=== PATIENT | female | born 2000 | race Caucasian/White ===

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

== ENCOUNTER 2022-12-03 10:25 | Emergency (ER) | payer OTHER ==
[2022-12-03] MEDS ORDERED: KETOROLAC 15 MG/ML 1 ML VIAL IM STA (11:25)
[2022-12-03] MEDS ORDERED: LIDOCAINE 5% PATCH TOPICAL SCH (11:30)
--- NOTE | 2022-12-03 12:30 | ED ---
General Adult HPI - General Source: patient, RN notes reviewed Mode of arrival: ambulatory Limitations: no limitations <Fiordaliza Patel - Last Filed: 12/03/22 18:49> <Mariel Garcia - Last Filed: 12/04/22 08:18> - General Chief complaint: Back Pain/Injury Stated complaint: Back pain Time Seen by Provider: 12/03/22 10:59 - History of Present Illness Initial comments: 22-year-old female with no significant past medical history who presents to the emergency department with a chief complaint of acute low back pain. Patient reports that she woke up this morning with left lower back pain. She denies any known recent trauma or injury. She denies any fever, chills, numbness tingling, saddle paresthesia, loss of bowel or bladder function. She has been taking Tylenol for his symptoms with mild relief. (Fiordaliza Patel) - Related Data Home Medications Medication Instructions Recorded Confirmed Ibuprofen [Motrin] 800 mg PO Q8H PRN 11/11/20 11/11/20 Norethind-Eth Estra 1-0.02mg 1 tab PO DAILY 11/11/20 11/11/20 Previous Rx's Medication Instructions Recorded Sulfamethox-Tmp 800-160Mg [Bactrim 1 tab PO Q12HR #28 tab 11/10/20 DS 800-160 mg] Ondansetron Odt [Zofran Odt] 4 mg PO Q8HR PRN #14 tab 11/11/20 Allergies Allergy/AdvReac Type Severity Reaction Status Date / Time adhesive Allergy Rash/Hives Verified 12/03/22 10:55 Penicillins Allergy Rash/Hives Verified 12/03/22 10:55 Review of Systems ROS Other: All systems not noted in ROS Statement are negative. <Fiordaliza Patel - Last Filed: 12/03/22 18:49> ROS Other: All systems not noted in ROS Statement are negative. <Mariel Garcia - Last Filed: 12/04/22 08:18> ROS Statement: Those systems with pertinent positive or pertinent negative responses have been documented in the HPI. Past Medical History Additional Past Medical History / Comment(s): uti, IBS History of Any Multi-Drug Resistant Organisms: ESBL Date of last positivie culture/infection: 12/02/20 MDRO Source:: ESBL URINE Past Surgical History: Adenoidectomy, Tonsillectomy Additional Past Surgical History / Comment(s): knee Past Psychological History: No Psychological Hx Reported Smoking Status: Vaper Past Alcohol Use History: Occasional Past Drug Use History: Marijuana <AmandaFiordaliza - Last Filed: 12/03/22 18:49> General Exam Limitations: no limitations General appearance: alert, in no apparent distress Head exam: Present: atraumatic, normocephalic, normal inspection Eye exam: Present: normal appearance, PERRL, EOMI. Absent: scleral icterus, conjunctival injection, periorbital swelling ENT exam: Present: normal exam, mucous membranes moist Neck exam: Present: normal inspection. Absent: tenderness, meningismus, lymphadenopathy Respiratory exam: Present: normal lung sounds bilaterally. Absent: respiratory distress, wheezes, rales, rhonchi, stridor Cardiovascular Exam: Present: regular rate, normal rhythm, normal heart sounds. Absent: systolic murmur, diastolic murmur, rubs, gallop, clicks GI/Abdominal exam: Present: soft, normal bowel sounds. Absent: distended, tenderness, guarding, rebound, rigid Extremities exam: Present: normal inspection, full ROM, normal capillary refill. Absent: tenderness, pedal edema, joint swelling, calf tenderness Back exam: Present: normal inspection Neurological exam: Present: alert, oriented X3, CN II-XII intact Psychiatric exam: Present: normal affect, normal mood Skin exam: Present: warm, dry, intact, normal color. Absent: rash <Fiordaliza Patel - Last Filed: 12/03/22 18:49> Course Vital Signs 12/03/22 12/03/22 10:53 12:37 Temperature 98.2 F 98.1 F Pulse Rate 75 77 Respiratory 20 16 Rate Blood Pressure 136/76 130/81 O2 Sat by Pulse 99 99 Oximetry Medical Decision Making <Fiordaliza Patel - Last Filed: 12/03/22 18:49> <Mariel Garcia - Last Filed: 12/04/22 08:18> - Medical Decision Making Was pt. sent in by a medical professional or institution (, PA, WEB CONSULTANT, urgent care, hospital, or custodial...) When possible be specific @ -[No] Did you speak to anyone other than the patient for history (EMS, parent, family, police, friend...)? What history was obtained from this source @ -[No] Did you review nursing and triage notes (agree or disagree)? Why? @ -[I reviewed and agree with nursing and triage notes] Were old charts reviewed (outside hosp., previous admission, EMS record, old EKG, old radiological studies, urgent care reports/EKG's, custodial records)? Report findings @ -[No old charts were reviewed] Differential Diagnosis (chest pain, altered mental status, abdominal pain women, abdominal pain men, vaginal bleeding, weakness, fever, dyspnea, syncope, headache, dizziness, GI bleed, back pain, seizure, CVA, palpatations, mental health, musculoskeletal)? @ -[not applicable] EKG interpreted by me (3pts min.). @ -[As above] X-rays interpreted by me (1pt min.). @ -[None done] CT interpreted by me (1pt min.). @ -[None done] U/S interpreted by me (1pt. min.). @ -[None done] What testing was considered but not performed or refused? (CT, X-rays, U/S, labs)? Why? @ -[None] What meds were considered but not given or refused? Why? @ -[None] Did you discuss the management of the patient with other professionals (professionals i.e. , PA, WEB CONSULTANT, lab, RT, psych nurse, clinical social work therapist, knot picker cloth, teacher, nuclear security officer, case technician)? Give summary @ -[No] Was smoking cessation discussed for >3mins.? @ -[No] Was critical care preformed (if so, how long)? @ -[No] Were there social determinants of health that impacted care today? How? (Homelessness, low income, unemployed, alcoholism, drug addiction, transportation, low edu. Level, literacy, decrease access to med. care, senior care, rehab)? @ -[No] Was there de-escalation of care discussed even if they declined (Discuss DNR or withdrawal of care, Hospice)? DNR status @ -[No] What co-morbidities impacted this encounter? (DM, HTN, Smoking, COPD, CAD, Cancer, CVA, ARF, Chemo, Hep., AIDS, mental health diagnosis, sleep apnea, morbid obesity)? @ -[None] Was patient admitted / discharged? Hospital course, mention meds given and route, prescriptions, significant lab abnormalities, going to OR and other pertinent info. @ -Discharged. This is a 22-year-old female who presents to the emergency department with low back pain. Patient had a thorough history and physical exam performed while in the ED. Heart rate regular rate and rhythm, lungs clear to auscultation bilaterally abdomen is soft and nontender. There is a rash across the lower abdomen is nontender. with mild symptomatic relief. He was given a Toradol and Lidoderm patch. I discussed the results in detail with the patient verbalized understanding, questions and concerns were addressed. The patient was discharged in stable condition. Case discussed with ROBBY Mcclure who agrees with plan of care Undiagnosed new problem with uncertain prognosis? @ -[No] Drug Therapy requiring intensive monitoring for toxicity (Heparin, Nitro, Insulin, Cardizem)? @ -[No] Were any procedures done? @ -[No] Diagnosis/symptom? @ -acute low back pain Acute, or Chronic, or Acute on Chronic? @ -acute Uncomplicated (without systemic symptoms) or Complicated (systemic symptoms)? @ -uncomplicated Side effects of treatment? @ -[No] Exacerbation, Progression, or Severe Exacerbation? @ -[No] Poses a threat to life or bodily function? How? (Chest pain, [place], [place], pneumonia, PE, COPD, DKA, ARF, appy, cholecystitis, CVA, Diverticulitis, Homicidal, Suicidal, threat to staff... and all critical care pts) @ -low likelihood (Fiordaliza Patel) I was overseeing doctor, not Dr. Drummond (Mariel Garcia) Disposition Is patient prescribed a controlled substance at d/c from ED?: No Time of Disposition: 12:30 <Fiordaliza Patel - Last Filed: 12/03/22 18:49> <Mariel Garcia - Last Filed: 12/04/22 08:18> Clinical Impression: Mechanical back pain Disposition: HOME SELF-CARE Condition: Stable Instructions (If sedation given, give patient instructions): Acute Low Back Pain (ED) Additional Instructions: Please return to the nearest emergency department if symptoms worsen or persist Please follow a ice or heat to the area for pain You can take Tylenol and Motrin as needed. Referrals: None,Stated [Primary Care Provider] - 1-2 days
[2022-12-03 12:39] VITALS: BP 130/81; PULSE 77; RESP 16; TEMP 98.1
== END 2022-12-03 12:38 | disposition home or self-care (01) ==
LOC: EC 10:25
DX: M54.50 Low back pain, unspecified (principal); F17.290 Nicotine dependence, other tobacco product, uncomplicated; F12.90 Cannabis use, unspecified, uncomplicated; Z91.09 Other allergy status, other than to drugs and biological substances; Z88.0 Allergy status to penicillin
CPT/HCPCS: 99283; 96372; J1885

== ENCOUNTER 2023-01-07 21:48 | Emergency (ER) | payer OTHER ==
[2023-01-07 22:15] VITALS: RESP 18; TEMP 98.5
[2023-01-07] MEDS ORDERED: ONDANSETRON 4 MG/2 ML VIAL IVP STA (22:30)
[2023-01-07] MEDS ORDERED: SODIUM CHLORIDE 0.9% 1,000 ML IV STA (22:30)
--- NOTE | 2023-01-07 22:43 | ED ---
General Adult HPI - General Chief complaint: Nausea/Vomiting/Diarrhea Stated complaint: Dehydration Time Seen by Provider: 01/07/23 22:16 Source: patient, RN notes reviewed Mode of arrival: ambulatory Limitations: no limitations - History of Present Illness Initial comments: 23-year-old female presents to the emergency department with chief complaint of vomiting and diarrhea. Patient states that started this morning. She has been having diarrhea which she states is now almost clear liquid. She also states that she has vomited 3 times. She reports nausea at this time. She also states that she has mild epigastric and left upper quadrant pain. Denies prior abdominal surgery. Denies fever, cough, sore throat. Denies urinary frequency, dysuria. Past medical history includes IBS. - Related Data Home Medications Medication Instructions Recorded Confirmed Ibuprofen [Motrin] 800 mg PO Q8H PRN 11/11/20 11/11/20 Norethind-Eth Estra 1-0.02mg 1 tab PO DAILY 11/11/20 11/11/20 Previous Rx's Medication Instructions Recorded Sulfamethox-Tmp 800-160Mg [Bactrim 1 tab PO Q12HR #28 tab 11/10/20 DS 800-160 mg] Ondansetron Odt [Zofran Odt] 4 mg PO Q8HR PRN #14 tab 11/11/20 Allergies Allergy/AdvReac Type Severity Reaction Status Date / Time adhesive Allergy Rash/Hives Verified 12/03/22 10:55 Penicillins Allergy Rash/Hives Verified 12/03/22 10:55 Review of Systems ROS Statement: Those systems with pertinent positive or pertinent negative responses have been documented in the HPI. ROS Other: All systems not noted in ROS Statement are negative. Past Medical History Additional Past Medical History / Comment(s): uti, IBS History of Any Multi-Drug Resistant Organisms: ESBL Date of last positivie culture/infection: 12/02/20 MDRO Source:: ESBL URINE Past Surgical History: Adenoidectomy, Tonsillectomy Additional Past Surgical History / Comment(s): knee Past Psychological History: No Psychological Hx Reported Smoking Status: Vaper Past Alcohol Use History: Occasional Past Drug Use History: Marijuana General Exam Limitations: no limitations General appearance: alert, in no apparent distress Head exam: Present: atraumatic, normocephalic, normal inspection Eye exam: Present: normal appearance ENT exam: Present: normal oropharynx, mucous membranes dry Neck exam: Present: normal inspection. Absent: tenderness, meningismus, lymphadenopathy Respiratory exam: Present: normal lung sounds bilaterally. Absent: respiratory distress, wheezes, rales, rhonchi, stridor Cardiovascular Exam: Present: regular rate, normal rhythm, normal heart sounds. Absent: systolic murmur, diastolic murmur, rubs, gallop, clicks GI/Abdominal exam: Present: soft, tenderness (TTP LUQ and epigastric ), hyperactive bowel sounds. Absent: distended, guarding, rebound, rigid Neurological exam: Present: alert, oriented X3 Psychiatric exam: Present: normal affect, normal mood Skin exam: Present: warm, dry, intact, normal color. Absent: rash Course Vital Signs 01/07/23 22:12 Temperature 98.5 F Pulse Rate 98 Respiratory 18 Rate Blood Pressure 136/74 O2 Sat by Pulse 98 Oximetry Medical Decision Making - Medical Decision Making Was pt. sent in by a medical professional or institution (, PA, W[employer] BLADE REPAIR TECHNICIAN, urgent care, hospital, or snf...) When possible be specific @ -No Did you speak to anyone other than the patient for history (EMS, parent, family, police, friend...)? What history was obtained from this source @ -No Did you review nursing and triage notes (agree or disagree)? Why? @ -I reviewed and agree with nursing and triage notes Were old charts reviewed (outside hosp., previous admission, EMS record, old EKG, old radiological studies, urgent care reports/EKG's, snf records)? Report findings @ -No old charts were reviewed Differential Diagnosis (chest pain, altered mental status, abdominal pain women, abdominal pain men, vaginal bleeding, weakness, fever, dyspnea, syncope, headach e, dizziness, GI bleed, back pain, seizure, CVA, palpatations, mental health, musculoskeletal)? @ -Differential Abdominal Pain Women: Appendicitis, Cholecystitis, diverticulosis, ischemic bowel, pancreatitis, hepatitis, UTI, gastroenteritis, AAA, incarcerated hernia, bowel obstruction, constipation, inflammatory bowel, hepatitis, peptic ulcer disease, splenic infarction, perforated viscus, vulvitis, ovarian torsion, PID, kidney stone, placenta abruption, this is not meant to be an all-inclusive list EKG interpreted by me (3pts min.). @ -None X-rays interpreted by me (1pt min.). @ -None done CT interpreted by me (1pt min.). @ -None done U/S interpreted by me (1pt. min.). @ -None done What testing was considered but not performed or refused? (CT, X-rays, U/S, labs)? Why? @ -None What meds were considered but not given or refused? Why? @ -None Did you discuss the management of the patient with other professionals (ant gonsales i.e. , PA, W[employer]UR[employer] BLADE REPAIR TECHNICIAN, lab, RT, psych nurse, social professionals, senior technical architect, teacher, agricultural technical officer, correctional casework specialist)? Give summary @ -No Was smoking cessation discussed for >3mins.? @ -No Was critical care preformed (if so, how long)? @ -No Were there social determinants of health that impacted care today? How? (Homelessness, low income, unemployed, alcoholism, drug addiction, transportation, low edu. Level, literacy, decrease access to med. care, skilled nursing, rehab)? @ -No Was there de-escalation of care discussed even if they declined (Discuss DNR or withdrawal of care, Hospice)? DNR status @ -No What co-morbidities impacted this encounter? (DM, HTN, Smoking, COPD, CAD, Cancer, CVA, ARF, Chemo, Hep., AIDS, mental health diagnosis, sleep apnea, morbid obesity)? @ -None Was patient admitted / discharged? Hospital course, mention meds given and route, prescriptions, significant lab abnormalities, going to OR and other pertinent info. @ -Patient presented to the emergency department with chief complaint of diarrhea and vomiting. VSS. Ordered 1L NS and zofran. CBC shows WBC 10.0, hgb 12.4, hct 38.1; CMP shows Na 138, potassium 4.3, Cl 103, Cr 0.70, lipase 82. Patient was unable to provide a urine sample. Discussed lab results with patient and return precautions. Case discussed with my attending, Dr. Gabriel. Patient discharged in stable condition. Undiagnosed new problem with uncertain prognosis? @ -No Drug Therapy requiring intensive monitoring for toxicity (Heparin, Nitro, Insulin, Cardizem)? @ -No Were any procedures done? @ -No Diagnosis/symptom? @ -gastroenteritis Acute, or Chronic, or Acute on Chronic? @ -acute Uncomplicated (without systemic symptoms) or Complicated (systemic symptoms)? @ -uncomplicated Side effects of treatment? @ -No Exacerbation, Progression, or Severe Exacerbation? @ -No Poses a threat to life or bodily function? How? (Chest pain, USA, [place], pneumonia, PE, COPD, DKA, ARF, appy, cholecystitis, CVA, Diverticulitis, Homicidal, Suicidal, threat to staff... and all critical care pts) @ -No - Lab Data Result diagrams: 01/07/23 22:47 01/07/23 22:47 Lab Results 01/07/23 01/07/23 Range/Units 22:47 22:47 WBC 10.0 (3.8-10.6) k/uL RBC 4.92 (3.80-5.40) m/uL Hgb 12.4 (11.4-16.0) gm/dL Hct 38.1 (34.0-46.0) % MCV 77.3 L (80.0-100.0) fL MCH 25.2 (25.0-35.0) pg MCHC 32.5 (31.0-37.0) g/dL RDW 15.6 H (11.5-15.5) % Plt Count 329 (150-450) k/uL MPV 7.1 Neutrophils % 81 % Lymphocytes % 11 % Monocytes % 5 % Eosinophils % 1 % Basophils % 0 % Neutrophils # 8.1 H (1.3-7.7) k/uL Lymphocytes # 1.1 (1.0-4.8) k/uL Monocytes # 0.5 (0-1.0) k/uL Eosinophils # 0.1 (0-0.7) k/uL Basophils # 0.0 (0-0.2) k/uL Microcytosis Slight Sodium 138 (137-145) mmol/L Potassium 4.3 (3.5-5.1) mmol/L Chloride 103 (98-107) mmol/L Carbon Dioxide 22 (22-30) mmol/L Anion Gap 13 mmol/L BUN 12 (7-17) mg/dL Creatinine 0.70 (0.52-1.04) mg/dL Est GFR (CKD-EPI)AfAm >90 (>60 ml/min/1.73 sqM) Est GFR (CKD-EPI)NonAf >90 (>60 ml/min/1.73 sqM) Glucose 92 (74-99) mg/dL Calcium 9.0 (8.4-10.2) mg/dL Total Bilirubin 0.6 (0.2-1.3) mg/dL AST 22 (14-36) U/L ALT 19 (4-34) U/L Alkaline Phosphatase 59 (38-126) U/L Total Protein 8.0 (6.3-8.2) g/dL Albumin 4.6 (3.5-5.0) g/dL Lipase 82 (23-300) U/L Disposition Clinical Impression: Gastroenteritis Disposition: HOME SELF-CARE Condition: Stable Instructions (If sedation given, give patient instructions): Acute Nausea and Vomiting (ED) Additional Instructions: Please return to the Emergency Department if symptoms worsen or any other concerns. Is patient prescribed a controlled substance at d/c from ED?: No Referrals: None,Stated [Primary Care Provider] - 1-2 days Time of Disposition: 23:40
[2023-01-07 23:02] LABS: Basophils % (A) 0 %; Eosinophils # (A) 0.1 k/uL (0-0.7); Eosinophils % (A) 1 %; HCT 38.1 % (34.0-46.0); HGB 12.4 gm/dL (11.4-16.0); Lymphocytes # (A) 1.1 k/uL (1.0-4.8); Lymphocytes % (A) 11 %; MCH 25.2 pg (25.0-35.0); MCHC 32.5 g/dL (31.0-37.0); MCV 77.3 fL (80.0-100.0); Mean Platelet Volume 7.1; Microcytosis Slight; Monocytes # (A) 0.5 k/uL (0-1.0); Monocytes % (A) 5 %; Neutrophils # (A) 8.1 k/uL (1.3-7.7); Neutrophils % (A) 81 %; Platelet Count 329 k/uL (150-450); RBC 4.92 m/uL (3.80-5.40); RDW 15.6 % (11.5-15.5)
[2023-01-07 23:10] LABS: ALT 19 U/L (4-34); AST 22 U/L (14-36); African American GFR (CKD) >90 (>60 ml/min/1.73 sqM); Albumin 4.6 g/dL (3.5-5.0); Alkaline Phosphatase 59 U/L (38-126); Anion Gap 13 mmol/L; Blood Urea Nitrogen 12 mg/dL (7-17); Carbon Dioxide 22 mmol/L (22-30); Chloride 103 mmol/L (98-107); Glucose 92 mg/dL (74-99); Lipase 82 U/L (23-300); Non-African American GFR(CKD) >90 (>60 ml/min/1.73 sqM); Potassium 4.3 mmol/L (3.5-5.1); Sodium 138 mmol/L (137-145); Total Bilirubin 0.6 mg/dL (0.2-1.3)
[2023-01-07 23:46] VITALS: BP 128/76; PULSE 82
== END 2023-01-07 23:48 | disposition home or self-care (01) ==
LOC: EC 21:48
DX: K52.9 Noninfective gastroenteritis and colitis, unspecified (principal); F17.290 Nicotine dependence, other tobacco product, uncomplicated; F12.90 Cannabis use, unspecified, uncomplicated; Z91.09 Other allergy status, other than to drugs and biological substances; Z88.0 Allergy status to penicillin
CPT/HCPCS: 80053; 83690; 85025; 99284; 96374; 96361; J2405; 36415

== ENCOUNTER 2023-02-13 22:06 | Emergency (ER) | payer OTHER ==
[2023-02-13 22:13] VITALS: RESP 16; TEMP 98.4
[2023-02-13] MEDS ORDERED: DEXAMETHASONE SOD PHOSPHATE 10 MG/ML 1 ML VIAL IVP STA (22:16)
[2023-02-13] MEDS ORDERED: KETOROLAC 15 MG/ML 1 ML VIAL IVP STA (22:16)
[2023-02-13] MEDS ORDERED: METOCLOPRAMIDE 5 MG/ML 2 ML VIAL IVP STA (22:16)
[2023-02-13] MEDS ORDERED: SODIUM CHLORIDE 0.9% 1,000 ML IV STA (22:16)
[2023-02-13] MEDS ORDERED: diphenhydrAMINE 50 MG/ML 1 ML VIAL IVP STA (22:16)
--- NOTE | 2023-02-13 23:28 | ED ---
Headache HPI - General Chief Complaint: Headache Stated Complaint: migraine Time Seen by Provider: 02/13/23 22:16 Mode of arrival: ambulatory Limitations: no limitations - History of Present Illness Initial Comments: Patient is a 23-year-old female presents to the emergency department for migraine x 1 day. Patient has history of migraine states this feels similar. She denies recent head trauma and falls. She started sumutriptan last week by her primary care provider who manages her migraines. She took her last night without relief. She denies numbness and tingling. Reports nausea without vomiting. Denies fever and chills. Denies focal deficit and weakness. - Related Data Home Medications Medication Instructions Recorded Confirmed Ibuprofen [Motrin] 800 mg PO Q8H PRN 11/11/20 11/11/20 Norethind-Eth Estra 1-0.02mg 1 tab PO DAILY 11/11/20 11/11/20 Previous Rx's Medication Instructions Recorded Sulfamethox-Tmp 800-160Mg [Bactrim 1 tab PO Q12HR #28 tab 11/10/20 DS 800-160 mg] Ondansetron Odt [Zofran Odt] 4 mg PO Q8HR PRN #14 tab 11/11/20 Allergies Allergy/AdvReac Type Severity Reaction Status Date / Time adhesive Allergy Rash/Hives Verified 02/13/23 22:10 albuterol Allergy Anaphylaxis Verified 02/13/23 22:10 Penicillins Allergy Rash/Hives Verified 02/13/23 22:10 Review of Systems ROS Statement: Those systems with pertinent positive or pertinent negative responses have been documented in the HPI. ROS Other: All systems not noted in ROS Statement are negative. Past Medical History Additional Past Medical History / Comment(s): uti, IBS, migraines, colitis History of Any Multi-Drug Resistant Organisms: ESBL Date of last positivie culture/infection: 12/02/20 MDRO Source:: ESBL URINE Past Surgical History: Adenoidectomy, Tonsillectomy Additional Past Surgical History / Comment(s): knee Past Psychological History: No Psychological Hx Reported Smoking Status: Vaper Past Alcohol Use History: Occasional Past Drug Use History: Marijuana General Exam Limitations: no limitations General appearance: alert, in no apparent distress Head exam: Present: atraumatic, normocephalic, normal inspection Eye exam: Present: normal appearance, PERRL, EOMI. Absent: scleral icterus, conjunctival injection, periorbital swelling Respiratory exam: Present: normal lung sounds bilaterally. Absent: respiratory distress, wheezes, rales, rhonchi, stridor Cardiovascular Exam: Present: regular rate, normal rhythm, normal heart sounds. Absent: systolic murmur, diastolic murmur, rubs, gallop, clicks Neurological exam: Present: alert, oriented X3, CN II-XII intact Expanded Sensory exam: Upper Extremity Light Touch: Normal, Lower Extremity Light Touch: Normal Motor strength exam: RUE: 5, LUE: 5, RLE: 5, LLE: 5 Psychiatric exam: Present: normal affect, normal mood Skin exam: Present: warm, dry, intact, normal color. Absent: rash Course Vital Signs 02/13/23 02/13/23 22:10 23:34 Temperature 98.4 F Pulse Rate 82 72 Respiratory 16 16 Rate Blood Pressure 133/83 119/68 O2 Sat by Pulse 97 98 Oximetry Medical Decision Making - Medical Decision Making Was pt. sent in by a medical professional or institution (, PA, ELECTROPLATING LABORER, urgent care, hospital, or prison...) When possible be specific @ -No Did you speak to anyone other than the patient for history (EMS, parent, family, police, friend...)? What history was obtained from this source @ -No Did you review nursing and triage notes (agree or disagree)? Why? @ -I reviewed and agree with nursing and triage notes Were old charts reviewed (outside hosp., previous admission, EMS record, old EKG, old radiological studies, urgent care reports/EKG's, prison records)? Report findings @ -No old charts were reviewed Differential Diagnosis (chest pain, altered mental status, abdominal pain women, abdominal pain men, vaginal bleeding, weakness, fever, dyspnea, syncope, headache, dizziness, GI bleed, back pain, seizure, CVA, palpatations, mental health)? @ -Differential Headache: Migraine, tension, cluster, carbon monoxide, central venous thrombosis, pension karma temporal arteritis, acute closure glaucoma, intercranial hemorrhage, mastoiditis, sinusitis, head injury, this is not meant to be an all-inclusive list. EKG interpreted by me (3pts min.). @ -As above X-rays interpreted by me (1pt min.). @ -None done CT interpreted by me (1pt min.). @ -None done U/S interpreted by me (1pt. min.). @ -None done What testing was considered but not performed or refused? (CT, X-rays, U/S, labs)? Why? @ -None What meds were considered but not given or refused? Why? @ -None Did you discuss the management of the patient with other professionals (professionals i.e. , PA, ELECTROPLATING LABORER, lab, RT, psych nurse, social media manager, pencil inspector, teacher, staff combat information center officer, case loader operator)? Give summary @ -No Was smoking cessation discussed for >3mins.? @ -No Was critical care preformed (if so, how long)? @ -No Were there social determinants of health that impacted care today? How? (Homelessness, low income, unemployed, alcoholism, drug addiction, transportation, low edu. Level, literacy, decrease access to med. care, half-way, rehab)? @ -No Was there de-escalation of care discussed even if they declined (Discuss DNR or withdrawal of care, Hospice)? DNR status @ -No What co-morbidities impacted this encounter? (DM, HTN, Smoking, COPD, CAD, Cancer, CVA, ARF, Chemo, Hep., AIDS, mental health diagnosis, sleep apnea, morbid obesity)? @ -None Was patient admitted / discharged? Hospital course, mention meds given and route, prescriptions, significant lab abnormalities, going to OR and other pertinent info. @ -Patient presented with migraine. No neurological deficit on exam. Patient given migraine cocktail with resolution of symptoms. Undiagnosed new problem with uncertain prognosis? @ -No Drug Therapy requiring intensive monitoring for toxicity (Heparin, Nitro, Insulin, Cardizem)? @ -No Were any procedures done? @ -[No] Diagnosis/symptom? @ -Migraine Acute, or Chronic, or Acute on Chronic? @ -Acute Uncomplicated (without systemic symptoms) or Complicated (systemic symptoms)? @ -Uncomplicated Side effects of treatment? @ -[No] Exacerbation, Progression, or Severe Exacerbation? @ -[No] Poses a threat to life or bodily function? How? (Chest pain, USA, [place], pneumonia, PE, COPD, DKA, ARF, appy, cholecystitis, CVA, Diverticulitis, Homicidal, Suicidal, threat to staff... and all critical care pts) @ -[No] Dr. Gabriel is my attending Disposition Clinical Impression: Migraine headache Disposition: HOME SELF-CARE Condition: Good Instructions (If sedation given, give patient instructions): Migraine Headache (ED) Additional Instructions: Please follow-up with your primary care provider in 1-2 days. Return to the emergency department if you experience new, concerning, or worsening symptoms. Is patient prescribed a controlled substance at d/c from ED?: No Referrals: None,Stated [Primary Care Provider] - 1-2 days
[2023-02-13 23:41] VITALS: BP 119/68; PULSE 72
== END 2023-02-13 23:34 | disposition home or self-care (01) ==
LOC: EC 22:06
DX: G43.909 Migraine, unspecified, not intractable, without status migrainosus (principal); F17.290 Nicotine dependence, other tobacco product, uncomplicated; F12.90 Cannabis use, unspecified, uncomplicated; Z91.09 Other allergy status, other than to drugs and biological substances; Z88.0 Allergy status to penicillin; Z88.8 Allergy status to other drugs, medicaments and biological substances
CPT/HCPCS: 99283; 96374; 96375 ×3; 96361; J1200; J1100; J2765; J1885

== ENCOUNTER → 2023-03-09 | Outpatient (CLI) | payer OTHER ==
--- NOTE | 2023-03-09 14:34 | US ---
EXAMINATION TYPE: US pelvic complete DATE OF EXAM: 03/09/2023 COMPARISON: NONE CLINICAL INDICATION: Female, 23 years old with history of R10.2PELVIC AND PERINEAL PAIN; N39.0 UTI; b ilat pelvic pain x 3-4 months, worse over last 2-3 weeks TECHNIQUE: Transabdominal (TA). Transabdominal sonographic images of the pelvis were acquired. Date of LMP: 03/09/2023 EXAM MEASUREMENTS: Uterus: 7.1x3.0x3.5 cm Endometrial Stripe: 0.42 cm Right Ovary: 2.9x1.3x1.9 cm Left Ovary: 2.8x1.3x2.6 cm 1. Uterus: Anteverted wnl 2. Endometrium: wnl 3. Right Ovary: wnl 4. Left Ovary: wnl 5. Bilateral Adnexa: Obscured by overlying bowel gas 6. Posterior cul-de-sac: wnl IMPRESSION: No evidence for acute process.
--- NOTE | 2023-03-09 14:36 | US ---
EXAMINATION TYPE: US kidneys/renal and bladder DATE OF EXAM: 03/09/2023 COMPARISON: NONE CLINICAL INDICATION: Female, 23 years old with history of R10.2PELVIC AND PERINEAL PAIN; N39.0 UTI; r ecurrent UTI's, last was 2 months prior EXAM MEASUREMENTS: Right Kidney: 9.9x4.9x4.5 cm Left Kidney: 10.0x5.1x5.6 cm Right Kidney: No hydronephrosis or masses seen Left Kidney: Extrarenal pelvis. No hydronephrosis is seen. Bladder: wnl Bilateral Jets seen: Yes There is no evidence for hydronephrosis at this point in time. No nephrolithiasis is seen. No sualiman s are identified. The urinary bladder is anechoic. Bilateral ureteral jets are seen. exam slightly limited due to large body habitus, rib shadows and overlying bowel gas IMPRESSION: Left extrarenal pelvis is suspected this could be confirmed with CT if clinically warranted. No evide nce for renal calculus.
== END | disposition home or self-care (01) ==
LOC: RADUSWWP 13:24
PROVIDERS: ATTEND Obstetrics & Gynecology
DX: R10.2 Pelvic and perineal pain (principal); N39.0 Urinary tract infection, site not specified
CPT/HCPCS: 76770; 76856

== ENCOUNTER 2023-05-30 14:43 | Emergency (ER) | payer OTHER ==
[2023-05-30 14:54] VITALS: BP 143/79; PULSE 72; RESP 16; TEMP 98.5
[2023-05-30 15:24] LABS: Basophils % (A) 1 %; Eosinophils # (A) 0.1 k/uL (0-0.7); Eosinophils % (A) 2 %; HCT 42.8 % (34.0-46.0); HGB 13.9 gm/dL (11.4-16.0); Lymphocytes # (A) 2.9 k/uL (1.0-4.8); Lymphocytes % (A) 40 %; MCHC 32.6 g/dL (31.0-37.0); Mean Platelet Volume 7.6; Monocytes # (A) 0.4 k/uL (0-1.0); Monocytes % (A) 5 %; Neutrophils # (A) 3.6 k/uL (1.3-7.7); Neutrophils % (A) 50 %; Platelet Count 294 k/uL (150-450); RBC 5.15 m/uL (3.80-5.40); RDW 15.3 % (11.5-15.5); WBC 7.2 k/uL (3.8-10.6)
[2023-05-30 15:28] LABS: ALT 29 U/L (4-34); AST 29 U/L (14-36); African American GFR (CKD) >90 (>60 ml/min/1.73 sqM); Albumin 4.4 g/dL (3.5-5.0); Alkaline Phosphatase 60 U/L (38-126); Anion Gap 11 mmol/L; Blood Urea Nitrogen 11 mg/dL (7-17); Calcium 9.4 mg/dL (8.4-10.2); Carbon Dioxide 21 mmol/L (22-30); Chloride 108 mmol/L (98-107); Glucose 102 mg/dL (74-99); Magnesium 2.1 mg/dL (1.6-2.3); Non-African American GFR(CKD) >90 (>60 ml/min/1.73 sqM); Sodium 140 mmol/L (137-145); Total Bilirubin 0.4 mg/dL (0.2-1.3)
--- NOTE | 2023-05-30 15:43 | XR ---
EXAMINATION TYPE: XR chest 2V DATE OF EXAM: 05/30/2023 COMPARISON: NONE HISTORY: Chest pain TECHNIQUE: Frontal and lateral views of the chest are obtained. FINDINGS: There is no focal air space opacity. No evidence for pneumothorax. No pleural effusion. The cardiac silhouette size is within normal limits. The osseous structures are grossly intact. IMPRESSION: 1. No acute cardiopulmonary process.
[2023-05-30 15:44] LABS: Partial Thromboplastin Time 26.4 sec (22.0-30.0); Prothrombin Time 10.7 sec (9.0-12.0)
--- NOTE | 2023-05-30 16:16 | ED ---
General Adult HPI - General Chief complaint: Chest Pain Stated complaint: Chest tightness Time Seen by Provider: 05/30/23 16:12 Source: patient, RN notes reviewed Mode of arrival: ambulatory Limitations: no limitations - History of Present Illness Initial comments: 23 year old female presents to the emergency department for chief complaint of chest tightness that started this morning. She states that it is in the sternal region and left sided chest. She states she has a history of SVT and occasionally gets tightness with this but states this feels different. Denies associated shortness of breath, diaphoresis, nausea, vomiting. - Related Data Home Medications Medication Instructions Recorded Confirmed Ibuprofen [Motrin] 800 mg PO Q8H PRN 11/11/20 11/11/20 Norethind-Eth Estra 1-0.02mg 1 tab PO DAILY 11/11/20 11/11/20 Previous Rx's Medication Instructions Recorded Sulfamethox-Tmp 800-160Mg [Bactrim 1 tab PO Q12HR #28 tab 11/10/20 DS 800-160 mg] Ondansetron Odt [Zofran Odt] 4 mg PO Q8HR PRN #14 tab 11/11/20 Allergies Allergy/AdvReac Type Severity Reaction Status Date / Time adhesive Allergy Rash/Hives Verified 02/13/23 22:10 albuterol Allergy Anaphylaxis Verified 02/13/23 22:10 Penicillins Allergy Rash/Hives Verified 02/13/23 22:10 Review of Systems ROS Statement: Those systems with pertinent positive or pertinent negative responses have been documented in the HPI. ROS Other: All systems not noted in ROS Statement are negative. Past Medical History Additional Past Medical History / Comment(s): uti, IBS, migraines, colitis. psvt History of Any Multi-Drug Resistant Organisms: ESBL Date of last positivie culture/infection: 12/02/20 MDRO Source:: ESBL URINE Past Surgical History: Adenoidectomy, Tonsillectomy Additional Past Surgical History / Comment(s): knee Past Psychological History: No Psychological Hx Reported Smoking Status: Vaper Past Alcohol Use History: Occasional Past Drug Use History: Marijuana General Exam - General Exam Comments Initial Comments: Visual Physical Exam Vital signs reviewed General: Well-appearing, nontoxic, no acute distress. Head: Normocephalic, atraumatic Eyes: PERRLA, EOMI ENT: Airway patent Chest: Nonlabored breathing Skin: No visual rash, normal skin tone Neuro: Alert and oriented 3 Musculoskeletal: No gross abnormalities Limitations: no limitations Course Vital Signs 05/30/23 14:48 Temperature 98.5 F Pulse Rate 72 Respiratory 16 Rate Blood Pressure 143/79 O2 Sat by Pulse 98 Oximetry Medical Decision Making - Medical Decision Making I preformed the quick note portion of this chart. Electronically signed by Olimpia Silver PA-C Patient eloped from the waiting room prior to reviewing results and therefore left AMA - Lab Data Result diagrams: 05/30/23 15:07 05/30/23 15:07 Lab Results 05/30/23 05/30/23 05/30/23 Range/Units 14:52 14:52 15:07 WBC 7.2 (3.8-10.6) k/uL RBC 5.15 (3.80-5.40) m/uL Hgb 13.9 (11.4-16.0) gm/dL Hct 42.8 (34.0-46.0) % MCV 83.0 (80.0-100.0) fL MCH 27.0 (25.0-35.0) pg MCHC 32.6 (31.0-37.0) g/dL RDW 15.3 (11.5-15.5) % Plt Count 294 (150-450) k/uL MPV 7.6 Neutrophils % 50 % Lymphocytes % 40 % Monocytes % 5 % Eosinophils % 2 % Basophils % 1 % Neutrophils # 3.6 (1.3-7.7) k/uL Lymphocytes # 2.9 (1.0-4.8) k/uL Monocytes # 0.4 (0-1.0) k/uL Eosinophils # 0.1 (0-0.7) k/uL Basophils # 0.0 (0-0.2) k/uL PT (9.0-12.0) sec INR (<1.2) APTT (22.0-30.0) sec Sodium (137-145) mmol/L Potassium (3.5-5.1) mmol/L Chloride (98-107) mmol/L Carbon Dioxide (22-30) mmol/L Anion Gap mmol/L BUN (7-17) mg/dL Creatinine (0.52-1.04) mg/dL Est GFR (CKD-EPI)AfAm (>60 ml/min/1.73 sqM) Est GFR (CKD-EPI)NonAf (>60 ml/min/1.73 sqM) Glucose (74-99) mg/dL Calcium (8.4-10.2) mg/dL Magnesium (1.6-2.3) mg/dL Total Bilirubin (0.2-1.3) mg/dL AST (14-36) U/L ALT (4-34) U/L Alkaline Phosphatase (38-126) U/L Troponin I (0.000-0.034) ng/mL Total Protein (6.3-8.2) g/dL Albumin (3.5-5.0) g/dL Urine Color Light Yellow Urine Appearance Cloudy H (Clear) Urine pH 7.0 (5.0-8.0) Ur Specific [place] 1.018 (1.001-1.035) Urine Protein Trace H (Negative) Urine Glucose (UA) Negative (Negative) Urine Ketones Negative (Negative) Urine Blood Large H (Negative) Urine Nitrite Negative (Negative) Urine Bilirubin Negative (Negative) Urine Urobilinogen <2.0 (<2.0) mg/dL Ur Leukocyte Esterase Large H (Negative) Urine RBC 162 H (0-5) /hpf Urine WBC 30 H (0-5) /hpf Ur Squamous Epith Cells 6 H (0-4) /hpf Urine Mucus Rare H (None) /hpf Urine HCG, Qual Not Detected (Not Detectd) 05/30/23 05/30/23 05/30/23 Range/Units 15:07 15:07 15:07 WBC (3.8-10.6) k/uL RBC (3.80-5.40) m/uL Hgb (11.4-16.0) gm/dL Hct (34.0-46.0) % MCV (80.0-100.0) fL MCH (25.0-35.0) pg MCHC (31.0-37.0) g/dL RDW (11.5-15.5) % Plt Count (150-450) k/uL MPV Neutrophils % % Lymphocytes % % Monocytes % % Eosinophils % % Basophils % % Neutrophils # (1.3-7.7) k/uL Lymphocytes # (1.0-4.8) k/uL Monocytes # (0-1.0) k/uL Eosinophils # (0-0.7) k/uL Basophils # (0-0.2) k/uL PT 10.7 (9.0-12.0) sec INR 1.0 (<1.2) APTT 26.4 (22.0-30.0) sec Sodium 140 (137-145) mmol/L Potassium 4.0 (3.5-5.1) mmol/L Chloride 108 H (98-107) mmol/L Carbon Dioxide 21 L (22-30) mmol/L Anion Gap 11 mmol/L BUN 11 (7-17) mg/dL Creatinine 0.61 (0.52-1.04) mg/dL Est GFR (CKD-EPI)AfAm >90 (>60 ml/min/1.73 sqM) Est GFR (CKD-EPI)NonAf >90 (>60 ml/min/1.73 sqM) Glucose 102 H (74-99) mg/dL Calcium 9.4 (8.4-10.2) mg/dL Magnesium 2.1 (1.6-2.3) mg/dL Total Bilirubin 0.4 (0.2-1.3) mg/dL AST 29 (14-36) U/L ALT 29 (4-34) U/L Alkaline Phosphatase 60 (38-126) U/L Troponin I <0.012 (0.000-0.034) ng/mL Total Protein 8.0 (6.3-8.2) g/dL Albumin 4.4 (3.5-5.0) g/dL Urine Color Urine Appearance (Clear) Urine pH (5.0-8.0) Ur Specific [place] (1.001-1.035) Urine Protein (Negative) Urine Glucose (UA) (Negative) Urine Ketones (Negative) Urine Blood (Negative) Urine Nitrite (Negative) Urine Bilirubin (Negative) Urine Urobilinogen (<2.0) mg/dL Ur Leukocyte Esterase (Negative) Urine RBC (0-5) /hpf Urine WBC (0-5) /hpf Ur Squamous Epith Cells (0-4) /hpf Urine Mucus (None) /hpf Urine HCG, Qual (Not Detectd) Disposition Clinical Impression: Left against medical advice Disposition: LEFT AGAINST MEDICAL ADVICE Referrals: None,Stated [Primary Care Provider] - 1-2 days
[2023-05-30 16:18] LABS: Appearance,Urine Cloudy (Clear); Bilirubin,Urine Negative (Negative); Blood,Urine Large (Negative); Color,Urine Light Yellow; Glucose,Urine (UA) Negative (Negative); Ketones,Urine Negative (Negative); Leukocyte Esterase,Urine Large (Negative); Mucus,Urine Rare /hpf; Nitrite,Urine Negative (Negative); Protein,Urine Trace (Negative); RBC,Urine 162 /hpf (0-5); Specific Gravity,Urine 1.018 (1.001-1.035); Squamous Epithelial Cell,Urine 6 /hpf (0-4); Urobilinogen,Urine <2.0 mg/dL (<2.0); WBC,Urine 30 /hpf (0-5)
== END 2023-05-30 18:21 | disposition left against medical advice (07) ==
LOC: EC 14:43
DX: R07.89 Other chest pain (principal); F17.290 Nicotine dependence, other tobacco product, uncomplicated; F12.90 Cannabis use, unspecified, uncomplicated; Z88.0 Allergy status to penicillin; Z88.8 Allergy status to other drugs, medicaments and biological substances; Z53.29 Procedure and treatment not carried out because of patient's decision for other reasons
CPT/HCPCS: 36415; 71046; 80053; 81001; 81025; 83735; 84484; 85025; 85610; 85730; 93005; 99285